=== PATIENT | male | born 1930 | race Caucasian/White ===

== ENCOUNTER 2016-06-28 15:00 | Outpatient (CLI) | payer MEDICARE, OTHER | END 2016-06-28 15:01 | disposition home or self-care (01) | DX: C61 Malignant neoplasm of prostate (principal) ==

== ENCOUNTER 2016-12-03 09:11 | Outpatient (CLI) | payer MEDICARE, OTHER ==
[2016-12-07 15:16] LABS: TEST RESULT REPORT (())
== END 2016-12-03 09:12 | disposition home or self-care (01) ==
LOC: LAB.F 09:11
PROVIDERS: ATTEND Internal Medicine Hematology & Oncology
DX: C61 Malignant neoplasm of prostate (principal)
CPT/HCPCS: 36415; 81599; 84153; 84402; 84403

== ENCOUNTER 2017-01-01 08:25 | Outpatient (CLI) | payer MEDICARE, OTHER ==
[2017-01-01 11:34] LABS: BASOPHILS % (AUTO) 0.8 %; EOSINOPHILS # (AUTO) 0.3 10^3/uL (0.0-0.7); HGB - HEMOGLOBIN 12.8 g/dL (14.0-18.0); LYMPHOCYTES # (AUTO) 0.6 10^3/uL (1.5-3.5); MONOCYTES # (AUTO) 0.4 10^3/uL (0.0-1.0); NEUTROPHILS # (AUTO) 1.8 10^3/uL (1.5-6.6)
[2017-01-01 11:37] LABS: EOSINOPHILS % (AUTO) 8.4 %; HCT - HEMATOCRIT 37.4 % (42.0-52.0); LYMPHOCYTES % (AUTO) 19.5 %; MEAN CORPUSCULAR HEMOGLOBIN 33.8 pg (27.0-31.0); MEAN CORPUSCULAR HGB CONC 34.2 g/dL (32.0-36.0); MEAN CORPUSCULAR VOLUME 98.9 fL (80.0-94.0); MEAN PLATELET VOLUME 7.4 fL (7.4-11.4); MONOCYTES % (AUTO) 14.2 %; NEUTROPHILS % (AUTO) 57.1 %; RED BLOOD COUNT 3.78 10^6/uL (4.70-6.10); RED CELL DISTRIBUTION WIDTH 14.6 % (12.0-15.0); UNCORRECTED WHITE BLOOD COUNT 3.1 x10^3/uL; WHITE BLOOD COUNT 3.1 x10^3/uL (4.8-10.8)
[2017-01-05 16:30] LABS: TEST RESULT REPORT (())
== END 2017-01-01 08:26 | disposition home or self-care (01) ==
LOC: LAB.F 08:25
PROVIDERS: ATTEND Nurse Practitioner
DX: C61 Malignant neoplasm of prostate (principal)
CPT/HCPCS: 36415; 81599; 84153; 84402; 84403; 85025

== ENCOUNTER 2017-02-20 08:25 | Day surgery (SDC) | payer MEDICARE, OTHER ==
[~2017-02-20 08:25] MED LIST: BRIMONIDINE 0.2% OPHTH DROPS 5 ML ONE; CYCLOPENTOLATE 1% OPHTH DROPS 2 ML ONE; KETOROLAC 0.45% OPHTH DROPS ONE; LABETALOL 5 MG/1 ML 20 ML MDV IV ONE; MIDAZOLAM 2 MG/2 ML VIAL IVP ONE; PHENYLEPHRINE 2.5% OPHTH 2 ML DROPS ONE; PROPARACAINE 0.5% OPHTH DROPS 15 ML ONE; TIMOLOL 0.5% OPHTH DROPS ONE
[2017-02-20] MEDS ORDERED: PROPARACAINE 0.5% OPHTH DROPS 15 ML OPTH ONE ×2 (08:50→09:50)
[2017-02-20] MEDS ORDERED: KETOROLAC 0.45% OPHTH DROPS OPTH ONE (08:50)
[2017-02-20] MEDS ORDERED: PHENYLEPHRINE 2.5% OPHTH 2 ML DROPS OPTH ONE (08:50)
[2017-02-20] MEDS ORDERED: CYCLOPENTOLATE 1% OPHTH DROPS 2 ML OPTH ONE (08:50)
[2017-02-20] MEDS ORDERED: LACTATED RINGERS 500 ML IV ONE (09:10)
[2017-02-20] MEDS ORDERED: EPINEPHrine 1 MG/ML AMP IVP ONE (09:49)
[2017-02-20] MEDS ORDERED: BRIMONIDINE 0.2% OPHTH DROPS 5 ML OPTH ONE (09:49)
[2017-02-20] MEDS ORDERED: TIMOLOL 0.5% OPHTH DROPS OPTH ONE (09:50)
[2017-02-20] MEDS ORDERED: BSS/LIDOCAINE/EPINEPHRINE 1 ML SYRINGE IO ONE (09:50)
[2017-02-20] MEDS ORDERED: CHONDR SULF/HYALURONATE SYRINGE IO ONE (09:50)
[2017-02-20] MEDS ORDERED: TRIAMCIN/MOXIFLOX/VANCO 1 ML VIAL IO ONE (09:51)
[2017-02-20 10:20] VITALS: BP 150/88
--- NOTE | 2017-02-21 06:59 | OPERATIVE REPORT ---
DATE OF SURGERY: 02/20/2017 00:00:00 PREOPERATIVE DIAGNOSIS: Visually significant cataract, left eye. Cataract surgery was performed on the right eye on 09/07/2005 by another surgeon. POSTOPERATIVE DIAGNOSIS: Visually significant cataract, left eye. Cataract surgery was performed on the right eye on 09/07/2005 by another surgeon. PROCEDURE: Phacoemulsification posterior chamber intraocular lens implant, left eye. SURGEON: Isiah Moses MD. ANESTHESIA: Monitored anesthesia care. COMPLICATIONS: None. OPERATIVE INDICATIONS: This is an 86-year-old man with progressive vision loss in the left eye due to 2+ nuclear sclerotic cataract. Best corrected visual acuity was 20/50 with glare to 20/100 in the left eye. Indications for surgery were overall decrease in vision and difficulty seeing street signs. He was consented at length concerning risks and benefits of cataract surgery, after which he expressed a desire to proceed with surgery. OPERATIVE PROCEDURE: The patient was taken into OR #2 and placed under monitored anesthesia care. Surgical timeout was conducted confirming the correct patient, correct procedure, and correct surgical site. He was given topical anesthesia and prepped and draped in the usual sterile fashion. The eye was entered at the 6 and 3 o'clock positions. Intracameral Shugarcaine was injected into the anterior chamber followed by Viscoat. A continuous tear curvilinear capsulorrhexis was performed. The nucleus was highly dissected and phacoemulsified. The cortex was evacuated using automated infusion aspiration. Provisc was injected into the capsular bag and a 21.0 Diopter intraocular lens was inserted in the bag. Approximately 0.7 mL of a mixture of triamcinolone, moxifloxacin, and vancomycin was injected subconjunctivally in the superior quadrant for infection and inflammation prophylaxis. I/A was used to evacuate the viscoelastic materials. The eye was inflated to a physiologic pressure using a balanced salt solution and found to be water tight. The patient was taken from the operating room in good condition and given postop instructions. JOB #: [id number] EXT JOB #:[id number] MTDD
== END 2017-02-20 08:26 | disposition home or self-care (01) ==
LOC: SDS 08:25
PROVIDERS: ATTEND Ophthalmology
PROC: 08RK3JZ Replacement of Left Lens with Synthetic Substitute, Percutaneous Approach (ICD-10-PCS; principal; 2017-02-20 09:30)
DX: H25.12 Age-related nuclear cataract, left eye (principal); I10 Essential (primary) hypertension; I48.91 Unspecified atrial fibrillation; Z85.038 Personal history of other malignant neoplasm of large intestine; Z95.0 Presence of cardiac pacemaker; Z87.891 Personal history of nicotine dependence
CPT/HCPCS: 66984; A9270; J3490; V2632

== ENCOUNTER 2017-02-26 08:14 | Outpatient (CLI) | payer MEDICARE, OTHER ==
[2017-02-26 11:50] LABS: EOSINOPHILS # (AUTO) 0.2 10^3/uL (0.0-0.7); EOSINOPHILS % (AUTO) 6.6 %; HCT - HEMATOCRIT 33.4 % (42.0-52.0); HGB - HEMOGLOBIN 11.3 g/dL (14.0-18.0); LYMPHOCYTES # (AUTO) 0.4 10^3/uL (1.5-3.5); MEAN CORPUSCULAR HEMOGLOBIN 33.9 pg (27.0-31.0); MEAN CORPUSCULAR HGB CONC 33.7 g/dL (32.0-36.0); MEAN CORPUSCULAR VOLUME 100.6 fL (80.0-94.0); MEAN PLATELET VOLUME 7.7 fL (7.4-11.4); MONOCYTES # (AUTO) 0.4 10^3/uL (0.0-1.0); NEUTROPHILS # (AUTO) 1.6 10^3/uL (1.5-6.6); NEUTROPHILS % (AUTO) 61.4 %; RED BLOOD COUNT 3.32 10^6/uL (4.70-6.10); RED CELL DISTRIBUTION WIDTH 14.9 % (12.0-15.0); UNCORRECTED WHITE BLOOD COUNT 2.6 x10^3/uL; WHITE BLOOD COUNT 2.6 x10^3/uL (4.8-10.8)
[2017-02-26 12:28] LABS: PLATELET ESTIMATE, MANUAL NORMAL (130-450,000) (NORMAL); PLATELET MORPHOLOGY NORMAL APPEARANCE (NORMAL)
== END 2017-02-26 08:15 | disposition home or self-care (01) ==
LOC: LAB.F 08:14
PROVIDERS: ATTEND Nurse Practitioner
DX: C61 Malignant neoplasm of prostate (principal)
CPT/HCPCS: 36415; 81599; 84153; 84403; 85025

== ENCOUNTER 2017-03-26 08:10 | Outpatient (CLI) | payer MEDICARE, OTHER ==
[2017-03-26 10:56] LABS: BASOPHILS % (AUTO) 1.1 %; EOSINOPHILS % (AUTO) 6.6 %; HCT - HEMATOCRIT 34.9 % (42.0-52.0); LYMPHOCYTES % (AUTO) 14.7 %; MEAN CORPUSCULAR HEMOGLOBIN 34.6 pg (27.0-31.0); MEAN CORPUSCULAR HGB CONC 34.4 g/dL (32.0-36.0); MEAN CORPUSCULAR VOLUME 100.7 fL (80.0-94.0); MEAN PLATELET VOLUME 7.2 fL (7.4-11.4); MONOCYTES % (AUTO) 15.3 %; NEUTROPHILS % (AUTO) 62.3 %; RED BLOOD COUNT 3.46 10^6/uL (4.70-6.10); RED CELL DISTRIBUTION WIDTH 14.7 % (12.0-15.0); UNCORRECTED WHITE BLOOD COUNT 2.8 x10^3/uL; WHITE BLOOD COUNT 2.8 x10^3/uL (4.8-10.8)
[2017-03-26 12:03] LABS: BAND NEUTROPHILS % (MANUAL) 1 %; BASOPHILS % (MANUAL) 1 %; EOSINOPHILS % (MANUAL) 9 %; LYMPHOCYTES % (MANUAL) 23 %; NEUTROPHILS % (MANUAL) 59 %; TOTAL CELLS COUNTED 100
[2017-03-26 12:04] LABS: NP AUTO DIFFERENTIAL? YES; NP MAN DIFFERENTIAL? NO
[2017-04-02 17:06] LABS: TEST RESULT REPORT
== END 2017-03-26 08:11 | disposition home or self-care (01) ==
LOC: LAB.F 08:10
PROVIDERS: ATTEND Nurse Practitioner
DX: C61 Malignant neoplasm of prostate (principal)
CPT/HCPCS: 36415; 81599; 84153; 84270; 84402; 84403; 85025

== ENCOUNTER 2017-04-14 11:45 | Emergency (ER) | payer MEDICARE, OTHER ==
--- NOTE | 2017-04-14 13:16 | XRAY Preliminary Report ---
Exam: XR CHEST 2 VIEW PA/LAT IMPRESSION: Pacer. Otherwise, unremarkable exam. [facility] SITE ID: [id number]
--- NOTE | 2017-04-14 13:23 | XRAY Report ---
EXAM: CHEST RADIOGRAPHY EXAM DATE: 04/14/2017 12:45 PM. CLINICAL HISTORY: Cough/wheeze for one week. COMPARISON: None. TECHNIQUE: 2 views. FINDINGS: Lungs/Pleura: No focal opacities evident. No pleural effusion. No pneumothorax. Normal volumes. Mediastinum: Heart is normal caliber. Dual lead left subclavian biventricular pacer. No adenopathy. Other: None. IMPRESSION: Pacer. Otherwise, unremarkable exam. [facility] Referring Provider Line: [phone] SITE ID: [id number]
--- NOTE | 2017-04-14 14:24 | ED Physician Documentation ---
History of Present Illness - Stated complaint Stated Complaint: WHEEZING - Chief complaint Chief Complaint: Resp - History obtained from History obtained from: Patient (pt reports congestion and cough for the past couple days, no fevers, no chest pain, no leg swelling, no fevers, no problems tolerating oral intake. no chronic lung problems. with similar symptoms.) Review of Systems Constitutional: denies: Fever, Chills Ears: denies: Drainage/discharge Nose: reports: Congestion. denies: Rhinorrhea / runny nose, Sinus pressure / pain Throat: denies: Sore throat, Swollen tonsils Cardiac: denies: Chest pain / pressure, Pedal edema Respiratory: reports: Dyspnea, Cough, Wheezing. denies: Hemoptysis GI: denies: Abdominal Pain, Nausea, Vomiting, Constipation, Diarrhea : denies: Dysuria, Frequency Skin: denies: Rash Musculoskeletal: denies: Neck pain, Back pain Neurologic: denies: Generalized weakness, Altered mental status, Headache, LOC PD PAST MEDICAL HISTORY - Past Medical History Past Medical History: Yes Cardiovascular: Hypertension, Arrhythmia Respiratory: None Endocrine/Autoimmune: None GI: Chronic diarrhea : Other HEENT: Chronic vision loss, Chronic hearing loss Psych: None Musculoskeletal: Osteoarthritis Derm: Other - Past Surgical History Past Surgical History: Yes General: Bowel surgery Cardiovascular: Pacemaker HEENT: Cataracts - Present Medications Home Medications: Ambulatory Orders Medication Instructions Recorded Confirmed Atenolol 25 mg PO DAILY 07/16/13 04/14/17 Leuprolide [Lupron] 45 mg IM ACHS 07/16/13 04/14/17 Calcium Carbonate [Calcium] 400 mg DAILY 03/17/14 04/14/17 Cholecalciferol (Vitamin D3) 1 cap PO DAILY 03/17/14 04/14/17 [Vitamin D3] Glucosamine Sulfate Dipot Chlr 3,500 mg PO DAILY 03/17/14 04/14/17 [Glucosamine] Rivaroxaban [Xarelto] 20 mg PO DAILY 03/17/14 04/14/17 Bicalutamide 50 mg PO DAILY 02/20/17 04/14/17 Albuterol Sulf [Ventolin Hfa 2 puffs INH Q4HR PRN #1 inhaler 04/14/17 Inhaler] Azithromycin 250 mg PO DAILY #6 tablet 04/14/17 - Allergies Allergies/Adverse Reactions: Allergies Allergy/AdvReac Type Severity Reaction Status Date / Time No Known Drug Allergies Allergy Verified 07/16/13 14:37 - Social History Does the pt smoke?: No Smoking Status: Never smoker Does the pt drink ETOH?: Yes ETOH Use: Wine Does the pt have substance abuse?: No - Immunizations Immunizations are current?: Yes - POLST Patient has POLST: Yes PD ED PE NORMAL - Vitals Vital signs reviewed: Yes - General General: Alert and oriented X 3, No acute distress, Well developed/nourished - HEENT HEENT: Atraumatic, Ears normal, Moist mucous membranes, Pharynx benign - Cardiac Cardiac: Other (irregular with hx of a fib) - Respiratory Respiratory: No respiratory distress. No: Clear bilaterally (rhonchi bilateral ) - Abdomen Abdomen: Normal bowel sounds, Soft, Non tender, Non distended - Derm Derm: Normal color, No rash - Extremities Extremities: No deformity - Neuro Neuro: Alert and oriented X 3 Eye Opening: Spontaneous Motor: Obeys Commands Verbal: Oriented GCS Score: 15 - Psych Psych: Normal mood, Normal affect Results - Vitals Vitals: Vital Signs - 24 hr 04/14/17 12:13 Temperature 36.0 C L Heart Rate 76 Respiratory 20 Rate Blood Pressure 150/99 H O2 Saturation 97 Oxygen O2 Source Room air - Rads (name of study) CXR Radiology: Final report received (IMPRESSION: Pacer. Otherwise, unremarkable exam.) PD MEDICAL DECISION MAKING - ED course Complexity details: d/w patient ED course: pt is well appearing, no respiratory distress. CXR neg for overt PNA, pt is afebrile. has similar symptoms. pt is on treatment for prostate cancer and just finished treatment last friday. We are unsure if the medication is chemo or other type of medication. the pt states that he was not told by his oncologist to watch for fevers. He was able to walk into the ER w/o being short of breath. after discussion we dicided to do an albuterol INH and space and will send home with a rx of abx. he was told to hold on the ABX for the next couple days and if he gets worse or does not improve to start them. he expressed understanding. Departure - Departure Disposition: 01 Home, Self Care Clinical Impression: Bronchitis, Cough Condition: Good Instructions: Bronchiolitis Follow-Up: Joselo Albrecht MD [Primary Care Provider] - Prescriptions: Albuterol Sulf [Ventolin Hfa Inhaler] 2 puffs INH Q4HR PRN #1 inhaler PRN Reason: Shortness Of Air/Wheezing Azithromycin 250 mg PO DAILY #6 tablet Comments: take your medications like we discussed. Follow up with your primary care provider. Start the antibiotics if you do not have improvement in the next 24- 48 hours or sooner if your symptoms worsen. Return to the ER for any new or worsening symptoms.
[2017-04-14 14:44] VITALS: BP 141/78
== END 2017-04-14 14:52 | disposition home or self-care (01) ==
LOC: ED 11:45
DX: J40 Bronchitis, not specified as acute or chronic (principal); Z95.0 Presence of cardiac pacemaker; I49.9 Cardiac arrhythmia, unspecified; I10 Essential (primary) hypertension; M19.90 Unspecified osteoarthritis, unspecified site; Z79.01 Long term (current) use of anticoagulants
CPT/HCPCS: 71020; 99283

== ENCOUNTER 2017-06-04 14:11 | Outpatient (CLI) | payer MEDICARE, OTHER ==
[2017-06-04 17:44] LABS: BASOPHILS % (AUTO) 0.7 %; EOSINOPHILS # (AUTO) 0.2 10^3/uL (0.0-0.7); EOSINOPHILS % (AUTO) 4.4 %; HGB - HEMOGLOBIN 11.1 g/dL (14.0-18.0); LYMPHOCYTES # (AUTO) 0.4 10^3/uL (1.5-3.5); LYMPHOCYTES % (AUTO) 12.2 %; MEAN CORPUSCULAR HEMOGLOBIN 34.6 pg (27.0-31.0); MEAN CORPUSCULAR HGB CONC 33.3 g/dL (32.0-36.0); MEAN PLATELET VOLUME 7.5 fL (7.4-11.4); MONOCYTES # (AUTO) 0.5 10^3/uL (0.0-1.0); MONOCYTES % (AUTO) 13.5 %; NEUTROPHILS # (AUTO) 2.5 10^3/uL (1.5-6.6); NEUTROPHILS % (AUTO) 69.2 %; PLT - PLATELET COUNT 163 10^3/uL (130-450); RED BLOOD COUNT 3.19 10^6/uL (4.70-6.10); RED CELL DISTRIBUTION WIDTH 14.6 % (12.0-15.0); WHITE BLOOD COUNT 3.6 x10^3/uL (4.8-10.8)
== END 2017-06-04 14:12 | disposition home or self-care (01) ==
LOC: LAB.F 14:11
PROVIDERS: ATTEND Nurse Practitioner
DX: C61 Malignant neoplasm of prostate (principal)
CPT/HCPCS: 36415; 81599; 84153; 84402; 84403; 85025

== ENCOUNTER 2017-12-16 08:46 | Outpatient (CLI) | payer MEDICARE, OTHER | END 2017-12-16 08:47 | disposition home or self-care (01) | LOC: LAB.F 08:46 | PROVIDERS: ATTEND Nurse Practitioner | DX: C61 Malignant neoplasm of prostate (principal) | CPT/HCPCS: 81599; 84153; 84402; 84403 ==